=== PATIENT | male | born 1995 | race Caucasian/White ===

== ENCOUNTER 2018-05-27 23:16 | Emergency (ER) | payer MEDICAID, SELFPAY ==
[2018-05-27 23:21] VITALS: BP 132/69; PULSE 78; RESP 16; TEMP 36.8; O2SAT 98
--- NOTE | 2018-05-27 23:33 | ED.GENADUL_ITS ---
Discharge Plan Disposition Patient Disposition: HOME Condition: Good Discharge Details Chief Complaint: EarProblem Clinical Impression: Physically well but worried Primary Care Provider: Corey Brock ED Provider: Porter Flores Home Meds and New Rx's Prescriptions: No Action No Known Home Meds RF: 0 Discharge Instructions Additional Instructions: If you notice any worsening of your symptoms, or any new symptoms such as vomiting, diarrhea, fever, chills, shortness of breath, chest pain, numbness, weakness, or fainting , please return immediately to the emergency department for reevaluation. Please follow up with your primary care provider as soon as possible for reassessment and reevaluation. As always, it was a pleasure participating in your medical care today. Referrals: Corey Brock. [Primary Care Provider] - Medical Decision Making This is a pleasant 22-year-old male who presents for evaluation of foreign body in his right ear. He states that he had a Q-tip that broke off and it came in to get it removed. On arrival the patient shows no signs of foreign body, tympanic membrane rupture, irritation or bleeding. Patient has no complaints or pain and would like to be discharged. Patient will be discharged home I have extensively reviewed the treatment plan and discharge instructions with the patient. I have addressed all patient concerns at this time. The patient was made aware of what symptoms to monitor for that would warrant a return to the emergency department. Discussed the plan with the patient, they demonstrate verbal understanding and agreement with our assessment and plan at this time. . HPI General Date/Time Provider Initiated Documentation: 05/27/18 23:23 . HPI Narrative: This is a pleasant 22-year-old male who presents for evaluation of foreign body in his right ear. He states that he was using Q-tips earlier today when he thought and one broke off in his ear. Girlfriend saw the piece of it in his ear told him to come into the ER for further evaluation. He denies any significant pain or bleeding. Here in the ER there is no evidence of acute foreign body in the ear. He has no complaints at this time. He denies any hearing loss. He denies any other complaints. Related Data Home Medications Medication Instructions Recorded Confirmed Unknown [No Known Home Meds] 09/06/17 09/06/17 Allergies Allergy/AdvReac Type Severity Reaction Status Date / Time No Known Allergies Allergy Unverified 09/14/17 15:47 General Stated Complaint: EarProblem HADLEY: 5 Review of Systems Review of Systems All systems reviewed & are unremarkable except as noted in HPI and below PFSH Surgical History Cholecystectomy (02/16/16) Vasectomy Social History Smoking and Tabacco status: Never Exam Narrative Exam Narrative: 1.Const: Well-nourished, Well-developed, appearing stated age 2.Eyes: PERRL, no conjunctival injection, and symmetrical lids. 3.ENT: Atraumatic external nose and ears. Moist MM. Neck: Symmetric, trachea midline, No thyromegaly. No evidence of bleeding, foreign body, otitis media, otitis externa, tympanic membrane rupture, or other abnormality 4.CVS: +S1/S2, No murmurs or gallops. Peripheral pulses 2+ and equal in all extremities. Brisk capillary refill in all extremities. 5.RESP: Unlabored respiratory effort. Clear to auscultation bilaterally. No wheezes rales or rhonchi 6.GI: Soft, Nontender/Nondistended, No hepatosplenomegaly. No guarding or rebound. 7.MSK: Normocephalic/Atraumatic, Extremities w/o deformity or ttp No cyanosis or clubbing, Normal movement of all extremities 8.Skin: Warm, Dry. No rashes or lesions. 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 Sensation grossly intact, no focal neurologic deficits. 10.Psych: (AAO) x3. Appropriate mood and affect Course Vital Signs Temperature 36.8 C 05/27/18 23:21 Pulse 78 05/27/18 23:21 Respiratory Rate 16 05/27/18 23:21 Blood Pressure 132/69 05/27/18 23:21 Pulse Oximetry 98 05/27/18 23:21 Temperature 36.8 C 05/27/18 23:21 Temperature Source Temporal Artery Scan 05/27/18 23:21 Pulse 78 05/27/18 23:21 Respiratory Rate 16 05/27/18 23:21 Respiratory Effort 05/27/18 23:21 Blood Pressure 132/69 05/27/18 23:21 Blood Pressure Position Supine 05/27/18 23:21 Pulse Oximetry 98 05/27/18 23:21 Oxygen Delivery Method Room Air 02/11/19 23:21 Oxygen Flow Rate 0 05/27/18 23:21
== END 2018-05-27 23:25 | disposition home or self-care (01) ==
LOC: ER 23:32
PROVIDERS: Emergency Provider Student in an Organized Health Care Education/Training Program; PCP Family Medicine
DX: T16.1XXA Foreign body in right ear, initial encounter (principal)
CPT/HCPCS: 99281

== ENCOUNTER 2018-08-15 07:21 | Emergency (ER) | payer MEDICAID, SELFPAY ==
[2018-08-15 07:24] VITALS: BP 130/84; PULSE 73; RESP 20; TEMP 36.7; O2SAT 97
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
[2018-08-15] MEDS: Ibuprofen 800 MG TAB PO (07:43)
[2018-08-15] MEDS: Acetaminophen 500 MG TAB 1000 MG PO (07:43)
[2018-08-15] MEDS: Lidocaine 5% Patch 1 PATCH TP (07:43)
[2018-08-15] MEDS: Nicotine 4 MG GUM CH (07:44)
[2018-08-15 08:22] VITALS: BP 130/84; PULSE 73; RESP 20; TEMP 36.7; O2SAT 97
== END 2018-08-15 08:20 | disposition home or self-care (01) ==
PROVIDERS: Emergency Provider Physician Assistant; PCP Family Medicine
DX: M25.511 Pain in right shoulder (principal); Y04.0XXA Assault by unarmed brawl or fight, initial encounter
CPT/HCPCS: 99283; 73030; 99282; L3650

== ENCOUNTER 2020-02-04 13:33 | Emergency (ER) | payer SELFPAY ==
[2020-02-04 13:39] VITALS: BP 146/126; PULSE 94; RESP 18; TEMP 37; O2SAT 97
[2020-02-04 14:18] LABS: Abs Immature Grans 0.01 10^3/uL (0.0-0.06); Absolute Basophil Count 0.04 10^3/uL (0.0-0.2); Absolute Eosinophil Count 0.38 10^3/uL (0.0-0.7); Absolute Lymphocyte Count 2.75 10^3/uL (1.2-3.4); Absolute Monocyte Count 0.54 10^3/uL (0.1-0.8); Absolute Neutrophil Count 3.69 10^3/uL (1.2-6.7); Basophils % 0.5; Eosinophils % 5.1; HCT 51.4 % (40.0-50.0); HGB 17.4 g/dL (13.5-17.5); Immature Grans % 0.1; Lymphocytes % 37.1; MCH 31.3 pg (27.0-33.0); MCHC 33.9 % (32.0-36.0); MCV 92.4 fL (80-95); MPV 10.3 fL (8.0-11.0); Monocytes % 7.3; Neutrophils % 49.9; Nucleated RBC 0 %; Platelet Count 303 10^3/uL (130-400); RBC 5.56 10^6/uL (4.36-5.78); RDW 11.3 % (11.8-14.1); RDW-SD 38.8 fL; WBC 7.41 10^3/uL (4.4-10.8)
--- NOTE | 2020-02-04 14:26 | ED.GENADUL_ITS ---
Discharge Plan Disposition Patient Disposition: HOME Condition: Stable Discharge Details Clinical Impression: Hemoptysis, Bright red blood per rectum, Adverse effect of ibuprofen, Bronchitis Primary Care Provider: Corey Brock ED Provider: Jourdan Mckeon Home Meds and New Rx's Prescriptions: New famotidine [Pepcid] 20 mg tablet 20 mg PO BID Qty: 60 RF: 0 Discontinued ibuprofen 200 mg tablet 600 mg PO BID-TID PRNRF: 0 Discharge Instructions Instructions: How to Stop Smoking (ED), Gastrointestinal Bleeding (ED), Acute Bronchitis (ED) Additional Instructions: Please stop taking ibuprofen. No ibuprofen for the next 1 month. Please take acetaminophen (tylenol) - 650mg every 6 hours by mouth as needed for pain. Please follow-up with a primary care physician. Please stay at home and isolate until Covid testing is negative. Return to the ER for any worsening or new concerning symptoms. Stand Alone Forms: POSITIVE COVID-19/TO BE TESTED, Work Release Referrals: Corey Brock [Primary Care Provider] - Discharge Data Discharge Date/Time-TO BE ENTERED AT DEPARTURE: 02/04/20 16:14 Medical Decision Making 24-year-old male here with cough over the past 3 to 4 weeks having traveled to [place] 6 weeks ago. Patient is afebrile and saturating well with no respiratory distress. Patient does note last night he had some blood-tinged to his cough. He also states that he had about a nickel sized amount of bright red blood in his stool last night. Patient is hemodynamically stable. Consider Covid. I will send Covid testing. Chest x-ray was reviewed and interpreted by radiology: Negative. Screening labs reviewed and normal hemoglobin. Normal electrolytes. Smoking cessation counseling was provided greater than 5 minutes. I will ask care management to help arrange outpatient primary care follow-up. Patient does not have a known primary care physician at this time. Suspect bronchitis as cause for hemoptysis and patient has been overdosing ibuprofen for musculoskeletal back pain. I discussed with him appropriate ibuprofen dosing and recommended he refrain from use for the next few weeks. HPI General Mode of arrival: ambulatory . Date/Time Provider Initiated Documentation: 02/04/20 13:45 . Limitations to Documentation: no limitations . Information obtained by: patient . HPI Narrative: 24-year-old male here with chief complaint cough that has persisted over the past 3 to 4 weeks. Patient traveled to [place] 6 weeks ago. Patient does note last night he had some blood-tinged to his cough. He also states that he had about a nickel sized amount of bright red blood in his loose stool last night. Patient notes associate dry throat. Has chronic back pain and has been taking ibuprofen recently. No fevers. Related Data Home Medications Medication Instructions Recorded Confirmed famotidine [Pepcid] 20 mg PO BID #60 tab 02/04/20 Previous Rx's Medication Instructions Recorded famotidine [Pepcid] 20 mg PO BID #60 tab 02/04/20 Allergies Allergy/AdvReac Type Severity Reaction Status Date / Time No Known Allergies Allergy Unverified 08/29/18 09:12 General Stated Complaint: GenMedical HADLEY: 3 Review of Systems All systems reviewed & are unremarkable except as noted in HPI and below Constitutional Constitutional: Denies fever(s) Respiratory Respiratory: Reports as per HPI [facility] Surgical History (Updated 01/30/18 @ 14:36 by [employer] [place]) Cholecystectomy (02/16/16) Vasectomy laparoscopic Social History Smoking/Tobacco Use Status: Current every day Tobacco Type: cigarettes Smoking risk assessment performed?: Yes Alcohol Intake: never Drug use: Daily Substance use type: marijuana Do you feel safe at home: Yes Do you feel safe in your relationship?: Yes Exam Const General: cooperative and no acute distress [facility] Mouth: moist mucous membranes Eyes Conjunctivae: normal conjunctivae Sclera: normal sclerae Neck Neck: trachea midline and supple Resp Auscultation: clear to auscultation bilaterally, no rales, no rhonchi and no wheezes Cardio Rate: regular rate and not tachycardic Rhythm: regular rhythm GI Palpation: soft, not firm, no guarding, no masses, not rigid and nontender Skin General skin exam: no rashes or lesions noted Neuro General: patient alert, patient awake, patient oriented x3 and tone normal Extrem General: no edema Psych Appearance: grossly normal Mental Status: mental status grossly normal Course Vital Signs Vital signs: Vital Signs Temperature 37.0 C 02/04/20 13:39 Pulse 94 H 02/04/20 13:39 Respiratory Rate 18 02/04/20 13:39 Blood Pressure 146/126 H 02/04/20 13:39 Pulse Oximetry 97 02/04/20 13:39 Temperature 37.0 C 02/04/20 13:39 Temperature Source Skin 02/04/20 13:39 Pulse 94 H 02/04/20 13:39 Respiratory Rate 18 02/04/20 13:39 Respiratory Effort Non-Labored 02/04/20 13:43 Blood Pressure 146/126 H 02/04/20 13:39 Blood Pressure Position Sitting 02/04/20 13:39 Pulse Oximetry 97 02/04/20 13:39 Oxygen Delivery Method Room Air 02/04/20 13:39 Oxygen Flow Rate 0 02/04/20 13:39 Lab/Test Results Lab/Test Results: Laboratory Tests Range/Units 02/04/20 14:05 WBC (4.4-10.8) 10^3/uL 7.41 RBC (4.36-5.78) 10^6/uL 5.56 Hgb (13.5-17.5) g/dL 17.4 Hct (40.0-50.0) % 51.4 H MCV (80-95) fL 92.4 MCH (27.0-33.0) pg 31.3 MCHC (32.0-36.0) % 33.9 RDW (11.8-14.1) % 11.3 L Plt Count (130-400) 10^3/uL 303 MPV (8.0-11.0) fL 10.3 Immature Gran % 0.1 Neutrophils % 49.9 Lymphocytes % 37.1 Monocytes % 7.3 Eosinophils % 5.1 Basophils % 0.5 Nucleated RBC % % 0 Absolute Neutrophils (1.2-6.7) 10^3/uL 3.69 Absolute Lymphocytes (1.2-3.4) 10^3/uL 2.75 Absolute Monocytes (0.1-0.8) 10^3/uL 0.54 Absolute Eosinophils (0.0-0.7) 10^3/uL 0.38 Absolute Basophils (0.0-0.2) 10^3/uL 0.04
[2020-02-04 14:31] LABS: ALT 15 U/L (16-63); AST 13 U/L (15-37); Albumin 4.5 g/dL (3.4-5.0); Alkaline Phosphatase 86 U/L (46-116); Anion Gap 5.2 mmol/L (3-11); BUN 15 mg/dL (7-18); Bilirubin, Total 1.2 mg/dL (0.2-1.0); CO2 29.8 mmol/L (21.0-32.0); CREATININE 0.88 mg/dL (0.70-1.30); Calcium 9.4 mg/dL (8.5-10.1); Chloride 103 mmol/L (98-107); Glucose 97 mg/dL (74-106); Potassium 4.1 mmol/L (3.5-5.1); Sodium 138 mmol/L (136-145); Total Protein 8.4 g/dL (6.4-8.2)
[2020-02-04 14:37] LABS: INR 1.1 (0.9-1.1); PTT Activated 26.5 sec (21.0-31.4)
--- NOTE | 2020-02-04 14:40 | DI.RAD_ITS ---
EXAM: XR PORTABLE CHEST AP CLINICAL HISTORY: cough, hemoptysis TECHNIQUE: 2D digital imaging was performed. COMPARISON: No exams were available for comparison FINDINGS: LUNGS: Clear. No pleural abnormality seen. HEART: Normal. MEDIASTINUM: Normal. OTHER FINDINGS: None. IMPRESSION: No acute pulmonary findings. DATA REPOSITORY: RADIATION DOSE DELIVERED:
--- NOTE | 2020-02-04 15:45 | NUR.NOTE ---
Nursing Note: Referral for patient to get a PCP and for follow up given to Care Management. Coleen Cheatham
[2020-02-04] MEDS: Famotidine 20 MG TAB PO (16:00)
[2020-02-04 16:10] VITALS: RESP 16
[2020-02-07 01:33] LABS: Patient Race White; SARS-CoV-2 RNA Undetected (Undetected); SARS-CoV-2 Specimen Source Nasopharynx
--- NOTE | 2020-02-07 09:19 | NUR.NOTE ---
02/07/20 @ 4418 left message for pt. to return call to ed for covid test results.
--- NOTE | 2020-02-09 10:35 | NUR.NOTE ---
Nursing Note: Attempted to call pt at cell number provided, no answer. VM left once more. Spoke with Corin, listed contact. No information given, though asked for pt to call ER @ [phone].
--- NOTE | 2020-02-09 13:43 | NUR.NOTE ---
Nursing Note: Pt given Negative COVID results at 1344 after identity verified.
== END 2020-02-04 16:14 | disposition home or self-care (01) ==
PROVIDERS: Emergency Provider Student in an Organized Health Care Education/Training Program; PCP Family Medicine
DX: R04.2 Hemoptysis (principal); K62.5 Hemorrhage of anus and rectum; T39.315A Adverse effect of propionic acid derivatives, initial encounter; J20.9 Acute bronchitis, unspecified; Z03.818 Encounter for observation for suspected exposure to other biological agents ruled out
CPT/HCPCS: 36415; 80053; 99284; 99406; U0003; 71045; 85025; 85610; 85730

== ENCOUNTER 2020-03-01 04:15 | Outpatient (CLI) | payer SELFPAY ==
[2020-03-03 21:45] LABS: Patient Race White; SARS-CoV-2 RNA Undetected (Undetected); SARS-CoV-2 Specimen Source Nasal
== END 2020-03-01 04:35 ==
PROVIDERS: PCP Family Medicine; Visit Provider Family Medicine
DX: Z20.828 Contact with and (suspected) exposure to other viral communicable diseases (principal)
CPT/HCPCS: U0003